=== PATIENT | female | born 1950 | race Caucasian/White ===

== ENCOUNTER → 2021-12-19 | Day surgery (SDC) | payer MEDICARE ==
[~2021-12-19] VITALS: Ht 157.5 cm; Wt 98.6 kg
[~2021-12-19] MED LIST: AMLODIPINE BESY10 MG PO; ASPIRIN CHEWABL81 MG PO; ATORVASTATIN CA10 MG PO; BONIVA 150MG T150 MG PO; CERTAGEN1 EACH PO; DITROPAN XL10 MG PO; DOXEPIN HCL25 MG PO; ETODOLAC ER400 MG PO; FEOSOL325 MG PO; GABAPENTIN800 MG PO; HYDROCODON-ACE1 EAC4 PO; LEVOTHYROXINE75 MCG PO; PERCOCET 5/3251 TAB PO; PRILOSEC20 MG PO; PRINIVIL20 MG PO; SYMBICORT 80-10.2 GM INH; VALIUM10 MG PO; ZANAFLEX4 M1 PO
== END | disposition home or self-care (01) ==
LOC: FAS 08:40
DX: Z12.11 Encounter for screening for malignant neoplasm of colon (principal); D12.0 Benign neoplasm of cecum; D12.5 Benign neoplasm of sigmoid colon; K57.30 Diverticulosis of large intestine without perforation or abscess without bleeding; K64.4 Residual hemorrhoidal skin tags; K21.9 Gastro-esophageal reflux disease without esophagitis; E03.9 Hypothyroidism, unspecified; M19.90 Unspecified osteoarthritis, unspecified site; F17.210 Nicotine dependence, cigarettes, uncomplicated; G47.30 Sleep apnea, unspecified; I10 Essential (primary) hypertension; E78.5 Hyperlipidemia, unspecified; Z86.73 Personal history of transient ischemic attack (TIA), and cerebral infarction without residual deficits; Z86.010 Personal history of colon polyps; Z79.83 Long term (current) use of bisphosphonates; Z79.890 Hormone replacement therapy; Z79.899 Other long term (current) drug therapy; Z88.1 Allergy status to other antibiotic agents; Z88.8 Allergy status to other drugs, medicaments and biological substances
CPT/HCPCS: J2704; J7120